=== PATIENT | female | born 1950 | race Caucasian/White ===

== ENCOUNTER 2019-04-21 00:49 | Outpatient (CLI) | payer MEDICARE, OTHER, MEDICAID, SELFPAY ==
--- NOTE | 2019-04-21 13:11 | DI.RAD_ITS ---
SYMPTOMS/DIAGNOSIS: COUGH, R05 PA AND LATERAL CHEST: No priors. The heart size and pulmonary vasculature are within normal limits. The lungs are clear and well expanded. No effusions or pneumothoraces are identified. There are bilateral breast implants in place. Degenerative changes are seen in the spine. IMPRESSION: No acute pulmonary process.
== END 2019-04-21 01:09 ==
PROVIDERS: Visit Provider Family Medicine
DX: R05 Cough (principal); Z98.82 Breast implant status
CPT/HCPCS: 71046

== ENCOUNTER 2019-05-14 12:47 | Outpatient (CLI) | payer MEDICARE, OTHER, SELFPAY ==
[2019-05-14 13:33] LABS: Hemoglobin A1C 6.6 % (4.5-6.2)
[2019-05-14 14:20] LABS: ALT 64 U/L (14-59); AST 36 U/L (15-37); Albumin 3.9 g/dL (3.4-5.0); Alkaline Phosphatase 81 U/L (46-116); Anion Gap 10.3 mmol/L (3-11); BUN 27 mg/dL (7-18); Bilirubin, Total 0.7 mg/dL (0.2-1.0); CO2 29.7 mmol/L (21.0-32.0); CREATININE 0.91 mg/dL (0.55-1.02); Calcium 9.7 mg/dL (8.5-10.1); Calculated LDL 88 mg/dL; Chloride 103 mmol/L (98-107); Cholesterol 167 mg/dL (50-200); Glucose 102 mg/dL (70-100); HDL Cholesterol 37 mg/dL (40-60); Potassium 3.8 mmol/L (3.5-5.1); Sodium 143 mmol/L (136-145); TSH 3.41 uIU/mL (0.36-3.74); Total Protein 7.3 g/dL (6.4-8.2); Triglyceride 213 mg/dL (30-150)
== END 2019-05-14 13:07 ==
PROVIDERS: PCP Family Medicine; Visit Provider Family Medicine
DX: I10 Essential (primary) hypertension (principal); E03.9 Hypothyroidism, unspecified; E11.9 Type 2 diabetes mellitus without complications
CPT/HCPCS: 36415; 80053; 80061; 83036; 84443

== ENCOUNTER 2020-06-26 02:18 | Outpatient (CLI) | payer MEDICARE, OTHER, SELFPAY ==
--- NOTE | 2020-06-26 | DI.CT_ITS ---
EXAM: CT NECK W CLINICAL HISTORY: CYST OF SALIVARY GLAND,K11.6. TECHNIQUE: Imaging Protocol: Axial computed tomography images with coronal and sagittal reformatted images were created and reviewed. CONTRAST MATERIAL: Intravenous: Omnipaque 350 Contrast volume:100 mL COMPARISON: No exams were available for comparison FINDINGS: Orbits and orbital soft tissues: Within normal limits. Visualized paranasal sinuses: Within normal limits. Nasopharynx: Within normal limits. Oropharynx: Within normal limits. Hypopharynx: Within normal limits. Larynx: Within normal limits. Retropharyngeal space: Within normal limits. Parotids/submandibular: The submandibular glands are unremarkable. Parotid glands appear decreased in size and contain punctate calcifications. There is a peripherally enhancing lesion measuring 1.8 x 0.8 cm lateral to the right digastric and mylohyoid muscles. It lies adjacent to the body of the r ight mandible. Centrally the lesion is fluid attenuation. Thyroid gland: Within normal limits. Lymphadenopathy: There is scattered lymph nodes seen along the level one to level three all measurin g less than 8 mm in short axis diameter which are physiologic in nature. Trachea: Within normal limits. Lung apices: Within normal limits. Bones: Within normal limits. Carotids/Jugular: Atherosclerosis seen in the carotid arteries. No significant stenosis. No occlus ion. Soft tissues: There is a 3.3 AP by 2.2 transverse by 5.1 cc cystic lesion in the left neck posterio r to the angle of the left mandible. The wall is predominantly thin with a slightly thicker portion posteriorly and inferiorly. IMPRESSION: 1. 1.8 x 0.8 cm peripherally enhancing lesion deep to the body of the right mandible in the submandib ular space. This may represent an infectious or inflammatory process such as an abscess. A mass can not be excluded. 2. 3.3 x 2.2 x 5.1 cm cystic lesion in the left neck posterior to the angle of the left mandible. Di fferential considerations include branchial cleft cyst, lymphangioma, adenopathy or neoplasm. RADIATION DOSE DELIVERED: 474.67mGy.cm Total DLP 474.67mGy.cm Total DLP DATA REPOSITORY: All CT scans at this facility are submitted to the National Radiology Data Registry (NRDR) Dose Index Registry (DIR) with the [employer] (ACR). RADIATION OPTIMIZATION: All CT scans at this facility use at least one of these dose optimization te chniques: automated exposure control; mA and/or kV adjustment per patient size (includes targeted exa ms where dose is matched to clinical indication); or iterative reconstruction.
[2020-06-26 12:45] LABS: Hemoglobin A1C 6.6 % (<5.7)
[2020-06-26 12:54] LABS: ALT 41 U/L (14-59); AST 25 U/L (15-37); Albumin 3.7 g/dL (3.4-5.0); Alkaline Phosphatase 88 U/L (46-116); Anion Gap 7.1 mmol/L (3-11); BUN 23 mg/dL (7-18); Bilirubin, Total 0.9 mg/dL (0.2-1.0); CO2 29.9 mmol/L (21.0-32.0); CREATININE 0.89 mg/dL (0.55-1.02); Calcium 9.5 mg/dL (8.5-10.1); Calculated LDL 73 mg/dL (<100); Chloride 102 mmol/L (98-107); Cholesterol 154 mg/dL (<200); Glucose 99 mg/dL (74-106); HDL Cholesterol 37 mg/dL (40-60); Potassium 3.8 mmol/L (3.5-5.1); Sodium 139 mmol/L (136-145); TSH 3.48 uIU/mL (0.36-3.74); Total Protein 7.6 g/dL (6.4-8.2); Triglyceride 224 mg/dL (<150)
[2020-06-26] MEDS: Normal Saline - Diluent 50 ML VIAL IV (13:13)
[2020-06-26] MEDS: Omnipaque 350 MG/ML 100 ML BTL IJ (13:14)
[2020-06-26] MEDS: Normal Saline Flush 10 ML SYR IVP (13:15)
== END 2020-06-26 02:38 ==
PROVIDERS: PCP Family Medicine; Visit Provider Family Medicine
DX: E11.9 Type 2 diabetes mellitus without complications (principal); I10 Essential (primary) hypertension; E78.2 Mixed hyperlipidemia; E03.9 Hypothyroidism, unspecified; K11.6 Mucocele of salivary gland
CPT/HCPCS: 70491; 80053; 80061; 83036; 84443; J3490

== ENCOUNTER 2020-07-25 00:53 | Outpatient (CLI) | payer MEDICARE, OTHER, SELFPAY ==
--- NOTE | 2020-07-25 14:33 | DI.MAMMO_ITS ---
EXAM: MG MAMMO SCREENING CLINICAL HISTORY: SCREENING, Z12.31. TECHNIQUE: Bilateral full field digital CC and MLO mammographic images were obtained with 3D tomosyn thesis and utilizing computer aided detection (CAD). Both conventional and implant displacement views were performed. COMPARISON: Prior mammograms dating back to 2014, the most recent being June 2019. FINDINGS: There are bilateral radiopaque prepectoral dense silicon implants. Capsular calcification of both im plants is noted. Number subtle nodular densities in both breasts, more evident than previous. Normal-appearing microc alcification groups. There is no new architectural distortion nor skin thickening-retraction. IMPRESSION: Subtle bilateral nodules. Recommend breast ultrasound. BI-RADS Category 0 - Assessment Incomplete: Need additional imaging evaluation Breast Density - Category B - Scattered areas of fibroglandular density Breast density Category C or D implies that the patient has dense breast tissue. Dense breast tissue can make it harder to find cancer on a mammogram. Dense breast tissue is also associated with an incr eased risk of breast cancer. This information about the result of the mammogram report was provided to the patient to raise their awareness. Use this report when you speak with the patient about their risks for breast cancer, which includes their family history. At that time, you may recommend additional screening tests (Ultrasoun d or MRI) as these tests may add significant information. A negative radiographic report should not delay biopsy if a dominant or clinically suspicious mass is present. Up to ten percent of cancers are not identified on mammography. A negative report may reinforce clinical impression. Adenosis and dense breasts may obscure an underlying neoplasm. False positive reports average 6 to 10%. Patient will receive a letter notifying them of these results.
== END 2020-07-25 01:13 ==
PROVIDERS: PCP Family Medicine; Visit Provider Family Medicine
DX: Z12.31 Encounter for screening mammogram for malignant neoplasm of breast (principal); Z98.82 Breast implant status; R92.8 Other abnormal and inconclusive findings on diagnostic imaging of breast
CPT/HCPCS: 77063; 77067

== ENCOUNTER 2020-08-03 03:32 | Outpatient (CLI) | payer MEDICARE, OTHER, SELFPAY ==
--- NOTE | 2020-08-03 | DI.US_ITS ---
EXAM: US BREAST LT LIMITED CLINICAL HISTORY: F/U MAMMO, BILAT NODULES TECHNIQUE: Ultrasound right breast performed using standard protocol. COMPARISON: US US BREAST RT LIMITED from 08/03/2020 FINDINGS: At the 3 o'clock position there is a wider than taller well-defined benign-appearing nodule measuring approximately 5 by 4.5 millimeters, probably a benign lymph node. No other focal findings evident.. IMPRESSION: Probable 5 x 4.5 millimeter lymph node 3 o'clock position. Recommend repeat ultrasound in 6 months t o ensure stability. BI-RADS Category 3 - 6 month - Probably Benign Finding: Recommend follow-up mammography in 6 months DATA REPOSITORY:
--- NOTE | 2020-08-03 | DI.US_ITS ---
EXAM: US BREAST RT LIMITED CLINICAL HISTORY: F/U MAMMO, BILAT NODULES TECHNIQUE: Ultrasound right breast performed using standard protocol. COMPARISON: Recent and prior mammograms were reviewed FINDINGS: At the 9 o'clock position there is an 8 x 6 millimeter benign-appearing lymph node. No other focal f indings evident on these images. IMPRESSION: Benign-appearing lymph node 9 o'clock position. BI-RADS Category 2 - Benign Findings DATA REPOSITORY:
== END 2020-08-03 03:52 ==
PROVIDERS: PCP Family Medicine; Visit Provider Family Medicine
DX: R92.8 Other abnormal and inconclusive findings on diagnostic imaging of breast (principal); N63.25 Unspecified lump in the left breast, overlapping quadrants; N63.15 Unspecified lump in the right breast, overlapping quadrants
CPT/HCPCS: 76642

== ENCOUNTER 2021-02-07 01:05 | Outpatient (CLI) | payer MEDICARE, OTHER, SELFPAY ==
--- NOTE | 2021-02-07 | DI.US_ITS ---
Exam(s) US BREAST RT LIMITED US BREAST LT LIMITED EXAM: US BREAST BILATERAL LIMITED CLINICAL HISTORY: F/U TO PREV, R92.8, ENLARGED LYMPH NODES,R59.9.6 MONTH FOLLOW UP. TECHNIQUE: Limited ultrasound of BOTH BREASTS was performed. COMPARISON: Prior mammograms were reviewed. This patient has bilateral silicone implants which were placed approximately 40 years ago. She claims that she is aware that they have been ruptured for alexys e time. FINDINGS: LEFT BREAST: At the 3 o'clock position there is again noted the previously described small benign-appearing nodule which has appearance of benign lymph node, measuring approximately 6 x 5 millimeters, unchanged. RIGHT BREAST: At the 9 o'clock position there is again noted a benign-appearing lymph node measuring 8 x 6 millimet ers, also exhibiting minimal if any significant change. At 7 o'clock position there is a finding consistent with the inferior aspect of her ruptured implant which measures approximately 1.5 x 1.5 cm. Adjacent to this are 2 small 3 millimeter cystic-appearin g structures which are possibly silicone droplets. Most importantly, there are no new solid lesions evident in either breast. IMPRESSION: Benign bilateral ultrasound findings as described above. Appropriate follow-up is to keep this patient yearly mammogram schedule implying that her next breast imaging would be in July 2021. At that time she should undergo bilateral mammography and bilate ral breast ultrasound.. BI-RADS Category 2 - Benign Findings Breast Density - Category B - Scattered areas of fibroglandular density Breast density Category C or D implies that the patient has dense breast tissue. Dense breast tissue can make it harder to find cancer on a mammogram. Dense breast tissue is also associated with an incr eased risk of breast cancer. This information about the result of the mammogram report was provided to the patient to raise their awareness. Use this report when you speak with the patient about their risks for breast cancer, which includes their family history. At that time, you may recommend additional screening tests (Ultrasoun d or MRI) as these tests may add significant information. A negative radiographic report should not delay biopsy if a dominant or clinically suspicious mass is present. Up to ten percent of cancers are not identified on mammography. A negative report may reinforce clinical impression. Adenosis and dense breasts may obscure an underlying neoplasm. False positive reports average 6 to 10%. Patient will receive a letter notifying them of these results.
== END 2021-02-07 01:25 ==
PROVIDERS: PCP Family Medicine; Visit Provider Surgery
DX: R59.0 Localized enlarged lymph nodes (principal); R92.8 Other abnormal and inconclusive findings on diagnostic imaging of breast
CPT/HCPCS: 76642

== ENCOUNTER 2021-03-07 03:31 | Outpatient (CLI) | payer MEDICARE, OTHER, SELFPAY ==
[2021-03-07 11:44] LABS: Hemoglobin A1C 7.3 % (<5.7)
[2021-03-07 12:33] LABS: ALT 113 U/L (14-59); AST 79 U/L (15-37); Albumin 3.8 g/dL (3.4-5.0); Alkaline Phosphatase 100 U/L (46-116); Anion Gap 10.8 mmol/L (3-11); BUN 21 mg/dL (7-18); Bilirubin, Total 0.8 mg/dL (0.2-1.0); CO2 29.2 mmol/L (21.0-32.0); Calcium 9.9 mg/dL (8.5-10.1); Chloride 104 mmol/L (98-107); Estimated GFR 54.97 (mL/min/1.73m2); Glucose 135 mg/dL (74-106); Sodium 144 mmol/L (136-145); TSH 3.71 uIU/mL (0.36-3.74); Total Protein 7.5 g/dL (6.4-8.2)
[2021-03-07 20:40] LABS: Calculated LDL 107 mg/dL (<100); Cholesterol 195 mg/dL (<200); HDL Cholesterol 37 mg/dL (40-60); Triglyceride 257 mg/dL (<150)
== END 2021-03-07 03:32 | disposition home or self-care (01) ==
LOC: LBO 03:31
PROVIDERS: PCP Family Medicine; Visit Provider Family Medicine
DX: I10 Essential (primary) hypertension (principal); E11.9 Type 2 diabetes mellitus without complications; E03.9 Hypothyroidism, unspecified; E78.5 Hyperlipidemia, unspecified
CPT/HCPCS: 36415; 80053; 80061; 83036; 84443

== ENCOUNTER 2021-07-31 00:28 | Outpatient (CLI) | payer MEDICARE, OTHER, SELFPAY ==
--- NOTE | 2021-07-31 10:20 | DI.MAMMO_ITS ---
Exam(s) MAMMO SCREENING EXAM: MAMMO SCREENING CLINICAL HISTORY: BREAST CANCER SCREENING Z12.31 TECHNIQUE: Bilateral full field digital CC and MLO mammographic images were obtained with 3D tomosyn thesis and utilizing computer aided detection (CAD). COMPARISON: Available for comparison. FINDINGS: Masses/Architectural Distortion: There are stable bilateral nodules present. The patient has bilater al breast implants. Capsular calcification is seen in both implants. Since the prior examination, t here appears to be rupture of the right breast implant. Microcalcifications: No suspicious pleomorphic-type are seen. Skin Thickening/Nipple Retraction: None. IMPRESSION: 1. No significant interval change with no specific features of malignancy noted. 2. Right breast implant rupture. 3. Unless there is more urgent need, screening mammography is recommended, as per [employer] guidelines. BI-RADS Category 2 - Benign Findings Breast Density - Category B - Scattered areas of fibroglandular density Breast density category C or D implies that the patient has dense breast tissue. Dense breast tissue is very common and is not abnormal but dense breast tissue can make it harder to find cancer on a ma mmogram. Also, dense breast tissue may increase their breast cancer risk. This information about the result of the mammogram report was provided to the patient to raise their awareness. Use this report when you speak with the patient about their risks for breast cancer, which includes their family hist ory. At that time, you may recommend for more screening tests (Ultrasound or MRI) as they might be us eful based on their risk. A negative radiographic report should not delay biopsy if a dominant or clinically suspicious mass is present. Up to ten percent of cancers are not identified on mammography. A negative report may reinforce clinical impression. Adenosis and dense breasts may obscure an underlying neoplasm. False positive reports average 6 to 10%. Patient will receive a letter notifying them of these results.
== END 2021-07-31 00:48 ==
PROVIDERS: PCP Family Medicine; Visit Provider Surgery
DX: Z12.31 Encounter for screening mammogram for malignant neoplasm of breast (principal); Z98.82 Breast implant status; T85.49XA Other mechanical complication of breast prosthesis and implant, initial encounter
CPT/HCPCS: 77063; 77067

== ENCOUNTER 2021-07-31 02:48 | Outpatient (CLI) | payer MEDICARE, OTHER, SELFPAY ==
[2021-07-31 12:07] LABS: ALT 94 U/L (14-59); AST 52 U/L (15-37); Albumin 4.1 g/dL (3.4-5.0); Alkaline Phosphatase 98 U/L (46-116); Anion Gap 9.9 mmol/L (3-11); BUN 30 mg/dL (7-18); Bilirubin, Total 1.3 mg/dL (0.2-1.0); CO2 32.1 mmol/L (21.0-32.0); CREATININE 1.1 mg/dL (0.55-1.02); Calcium 10.1 mg/dL (8.5-10.1); Calculated LDL 87 mg/dL (<100); Chloride 101 mmol/L (98-107); Cholesterol 165 mg/dL (<200); Estimated GFR 49.25 (mL/min/1.73m2); Glucose 140 mg/dL (74-106); HDL Cholesterol 34 mg/dL (40-60); Potassium 3.7 mmol/L (3.5-5.1); Sodium 143 mmol/L (136-145); TSH 3.41 uIU/mL (0.36-3.74); Total Protein 7.8 g/dL (6.4-8.2); Triglyceride 221 mg/dL (<150)
== END 2021-07-31 02:49 | disposition home or self-care (01) ==
LOC: LBO 02:48
PROVIDERS: PCP Family Medicine; Visit Provider Family Medicine
DX: E11.9 Type 2 diabetes mellitus without complications (principal); I10 Essential (primary) hypertension; E03.9 Hypothyroidism, unspecified; E78.2 Mixed hyperlipidemia
CPT/HCPCS: 36415; 80053; 80061; 83036; 84443

== ENCOUNTER 2021-09-12 02:03 | Outpatient (CLI) | payer MEDICARE, OTHER, SELFPAY ==
[2021-09-12 10:57] LABS: Hemoglobin A1C 7.3 % (<5.7)
[2021-09-12 12:39] LABS: ALT 101 U/L (14-59); AST 73 U/L (15-37); Albumin 3.9 g/dL (3.4-5.0); Alkaline Phosphatase 98 U/L (46-116); Anion Gap 9.9 mmol/L (3-11); BUN 28 mg/dL (7-18); Bilirubin, Total 0.9 mg/dL (0.2-1.0); CO2 28.1 mmol/L (21.0-32.0); Calcium 9.7 mg/dL (8.5-10.1); Chloride 103 mmol/L (98-107); Estimated GFR 54.97 (mL/min/1.73m2); Glucose 161 mg/dL (74-106); Potassium 3.8 mmol/L (3.5-5.1); Sodium 141 mmol/L (136-145); Total Protein 7.6 g/dL (6.4-8.2)
== END 2021-09-12 02:04 | disposition home or self-care (01) ==
LOC: LBO 02:03
PROVIDERS: PCP Family Medicine; Visit Provider Family Medicine
DX: E11.9 Type 2 diabetes mellitus without complications (principal); E78.2 Mixed hyperlipidemia
CPT/HCPCS: 36415; 80053; 83036

== ENCOUNTER 2022-03-06 02:37 | Outpatient (CLI) | payer MEDICARE, OTHER, SELFPAY ==
[2022-03-06 11:49] LABS: Hemoglobin A1C 7.1 % (<5.7)
[2022-03-06 12:41] LABS: ALT 53 U/L (14-59); AST 33 U/L (15-37); Albumin 3.9 g/dL (3.4-5.0); Alkaline Phosphatase 92 U/L (46-116); Anion Gap 12.3 mmol/L (3-11); BUN 25 mg/dL (7-18); Bilirubin, Total 1.2 mg/dL (0.2-1.0); CO2 29.7 mmol/L (21.0-32.0); Calcium 10.5 mg/dL (8.5-10.1); Calculated LDL 92 mg/dL (<100); Chloride 104 mmol/L (98-107); Cholesterol 164 mg/dL (<200); Estimated GFR 54.81 (mL/min/1.73m2); Glucose 148 mg/dL (74-106); HDL Cholesterol 39 mg/dL (40-60); Potassium 3.5 mmol/L (3.5-5.1); Sodium 146 mmol/L (136-145); TSH 3.36 uIU/mL (0.36-3.74); Total Protein 7.7 g/dL (6.4-8.2); Triglyceride 169 mg/dL (<150)
== END 2022-03-06 02:38 | disposition home or self-care (01) ==
LOC: LBO 02:37
PROVIDERS: PCP Family Medicine; Visit Provider Family Medicine
DX: I10 Essential (primary) hypertension (principal); E78.2 Mixed hyperlipidemia; E03.9 Hypothyroidism, unspecified; E11.9 Type 2 diabetes mellitus without complications
CPT/HCPCS: 36415; 80053; 80061; 83036; 84443

== ENCOUNTER → 2022-08-01 01:05 | Outpatient (CLI) | payer MEDICARE, SELFPAY ==
--- NOTE | 2022-08-01 | DI.MAMMO_ITS ---
Exam(s) MG MAMMO SCREENING 60 MIN DUR EXAM: MG MAMMO SCREENING 60 MIN DUR CLINICAL HISTORY: SCREENING, Z12.31 TECHNIQUE: Bilateral full field digital CC and MLO mammographic images were obtained with 3D tomosyn thesis and utilizing computer aided detection (CAD). COMPARISON: Available for comparison. FINDINGS: Masses/Architectural Distortion: There are stable bilateral breast nodules, right greater than left. No suspicious nodules or areas of architectural distortion are seen. The bilateral breast implants are unchanged in appearance. Microcalcifications: No suspicious pleomorphic-type are seen. Skin Thickening/Nipple Retraction: None. IMPRESSION: 1. No significant interval change with no specific features of malignancy noted. 2. Unless there is more urgent need, screening mammography is recommended, as per [employer] guidelines. BI-RADS Category 2 - Benign Findings Breast Density - Category B - Scattered areas of fibroglandular density Breast density category C or D implies that the patient has dense breast tissue. Dense breast tissue is very common and is not abnormal but dense breast tissue can make it harder to find cancer on a ma mmogram. Also, dense breast tissue may increase their breast cancer risk. This information about the result of the mammogram report was provided to the patient to raise their awareness. Use this report when you speak with the patient about their risks for breast cancer, which includes their family hist ory. At that time, you may recommend for more screening tests (Ultrasound or MRI) as they might be us eful based on their risk. A negative radiographic report should not delay biopsy if a dominant or clinically suspicious mass is present. Up to ten percent of cancers are not identified on mammography. A negative report may reinforce clinical impression. Adenosis and dense breasts may obscure an underlying neoplasm. False positive reports average 6 to 10%. Patient will receive a letter notifying them of these results.
== END ==
PROVIDERS: PCP Family Medicine; Visit Provider Surgery
DX: Z12.31 Encounter for screening mammogram for malignant neoplasm of breast (principal)
CPT/HCPCS: 77063; 77067

== ENCOUNTER 2022-09-02 03:21 | Outpatient (CLI) | payer MEDICARE, SELFPAY ==
[2022-09-02 12:08] LABS: Hemoglobin A1C 7.3 % (<5.7)
[2022-09-02 12:19] LABS: ALT 44 U/L (14-59); AST 37 U/L (15-37); Albumin 3.7 g/dL (3.4-5.0); Alkaline Phosphatase 94 U/L (46-116); BUN 27 mg/dL (7-18); Estimated GFR 60.61 (mL/min/1.73m2); Glucose 135 mg/dL (74-106); TSH 4.23 uIU/mL (0.36-3.74); Total Protein 7.5 g/dL (6.4-8.2)
[2022-09-02 12:29] LABS: Anion Gap 6.3 mmol/L (3-11); Bilirubin, Total 0.8 mg/dL (0.2-1.0); CO2 31.7 mmol/L (21.0-32.0); Chloride 102 mmol/L (98-107); Potassium 3.7 mmol/L (3.5-5.1); Sodium 140 mmol/L (136-145)
== END 2022-09-02 03:22 | disposition home or self-care (01) ==
LOC: LBO 03:21
PROVIDERS: PCP Family Medicine; Visit Provider Family Medicine
DX: E11.9 Type 2 diabetes mellitus without complications (principal); E03.9 Hypothyroidism, unspecified; I10 Essential (primary) hypertension
CPT/HCPCS: 36415; 80053; 83036; 84443

== ENCOUNTER 2022-11-27 03:08 | Outpatient (CLI) | payer MEDICARE, SELFPAY ==
[2022-11-27 13:00] LABS: Calculated LDL 98 mg/dL (<100); Cholesterol 183 mg/dL (<200); HDL Cholesterol 40 mg/dL (40-60); TSH 3.65 uIU/mL (0.36-3.74); Triglyceride 226 mg/dL (<150)
== END 2022-11-27 03:09 | disposition home or self-care (01) ==
LOC: LBO 03:08
PROVIDERS: PCP Family Medicine; Visit Provider Family Medicine
DX: E78.2 Mixed hyperlipidemia (principal); E11.9 Type 2 diabetes mellitus without complications; E03.9 Hypothyroidism, unspecified
CPT/HCPCS: 36415; 80061; 84443

== ENCOUNTER 2022-12-26 01:02 | Outpatient (CLI) | payer MEDICARE, SELFPAY ==
--- NOTE | 2022-12-26 10:38 | DI.US_ITS ---
APPROVED REPORT EXAM: Comprehensive 2D, Doppler, and color-flow Echocardiogram Patient Location: Out-Patient Plant Attendant: Dick Kim RDMS, RVT Indications: dyspnea Conclusion Normal left ventricular wall thickness and chamber size. Ejection fraction is 55%. There are no seg mental wall motion abnormalities Normal right ventricular size and systolic function Both atria are normal in size Trileaflet aortic valve with trace regurgitation Normal mitral valve with trace regurgitation Normal tricuspid valve with mild regurgitation. Estimated right ventricular systolic pressure is 23 mmHg Wall motion Left Ventricle The left ventricle is normal size. Left ventricular systolic function is normal There is normal left ventricular wall thickness. There are no segmental wall motion abnormalities There is no ventricular septal defect visualized. LVEF is 55%. Right Ventricle The right ventricle is normal size. The right ventricular systolic function is normal. The RVSP is 22 .9 mmHg. Atria The left atrium size is normal. The right atrium size is normal. The interatrial septum is intact wit h no evidence for an atrial septal defect. Aortic Valve The aortic valve is normal in structure. Aortic valve is probably trileaflet. There is no aortic valv ular stenosis. Trace aortic regurgitation. Mitral Valve The mitral valve is normal in structure. No evidence of mitral valve stenosis. Trace mitral regurgita tion. Tricuspid Valve The tricuspid valve is normal in structure. There is no tricuspid valve stenosis. Mild tricuspid regu rgitation. Pulmonic Valve The pulmonary valve is normal in structure. There is no pulmonic valvular stenosis. Trace pulmonic re gurgitation. Great Vessels The aortic root is normal in size. The ascending aorta is normal in size. Aortic arch is normal in ca liber. IVC is normal in size and collapses >50% with inspiration. Pericardium There is no pericardial effusion. 2D Dimensions IVSD d PLAX 0.75 cm F: 0.6-1.0 LV Vol A2C d MOD 39.9 mL LVPW d PLAX 0.75 cm F: 0.6 - 1.0 LV Vol A4C d MOD 84.2 mL LVID d PLAX 4.01 cm F: 3.8 - 5.2 LA vol/ BSA A4C s A-L 24.7 mL/m2 LVDs 2.90 cm F: 2.2 - 3.5 LA Area A4C s MOD 16.41 cm2 Ao Root d 2.36 cm F: 2.7 - 3.3 LV EF A4C MOD 50.8 % Ao Asc Diam d 3.05 cm F: 2.3 - 3.1 LV EF A2C MOD 51.4 % LV EF Teichholz 52.6 % LV EF Biplane MOD 50.8 % LVEF (Shay's) 50.76 % F: 54 - 74 SV 29.98 mL LV Volume 45.68 mL F: 46 - 106 SV Index 16.40 mL/m2 LV Volume Index 24.96 mL/m2 F: 29 - 61 LV Vol Biplane MOD 59.0 mL FS 26.60 % M-Mode TAPSE 1.83 cm (M/F) >1.7 LV Diastology MV E' medial 0.088 (>0.07 m/s) E/A Ratio 0.9 LV E/e MED 9.25 (<14) MV E Vmax 0.82 (0.4-1.3 m/s) MV E' lateral 0.095 (>0.1 m/s) MV A Vmax 0.95 (0.4-1.3 m/s) LV E/e LAT 8.55 (<14) MV E/A Ratio 0.84 MV E/E' medial 9.28 MV E/E' lateral 8.56 Aortic Valve LVOT Area 3.12 cm2 AoV Area Vmax 2.36 cm2 LVOT Vmax 0.88 m/s AoV Area/ BSA (Vmax) 1.29 cm2/m2 LVOT Mean Azael. 0.52 m/s GISELL Mean Azael. 2.00 cm2 LVOT Peak Grad 3.1 mmHg GISELL Mean Azael. Index 1.09 cm2/m2 LVOT Mean Grad 1.3 mmHg AR DT 1908 msec LVOT VTI 0.194 m AR PHT 553 msec LVOT Diam s 1.95 cm AoV Vmax 1.17 m/s Velocity Ratio 0.75 AoV Mean Azael. 0.81 m/s AoV Peak Grad 5.5 mmHg LVOT SV 60.51 mL AoV Mean Grad 2.9 mmHg AoV VTI 0.240 m AoV Area VTI 2.52 cm2 AoV Area/ BSA (VTI) 1.38 cm/m2 Mitral Valve MV DT 236 (160-240 msec) MV PHT 68 msec MV Area PHT 3.21 cm2 MV VTI 0.374 m MV Area VTI 1.62 (4.0-6.0 cm2) Pulmonary Valve PV Vmax 0.73 (0.5-1.5 m/s) RVOT Peak Gr. 0.42 mmHg PV Peak Grad 2.1 mmHg RVOT Mean Gr. 0.25 mmHg PV Mean Grad 1.4 mmHg RVOT VTI 0.083 m PV VTI 0.150 m RVOT Vmax 0.32 m/s Tricuspid Valve TR Peak Grad 19.9 mmHg TR Vmax 2.23 m/s RA Pressure 3.00 mmHg RVSP (TR) 22.9 mmHg
== END 2022-12-26 01:22 ==
LOC: DI 01:03
PROVIDERS: PCP Family Medicine; Visit Provider Internal Medicine Cardiovascular Disease
DX: R06.00 Dyspnea, unspecified (principal)
CPT/HCPCS: 93306

== ENCOUNTER 2023-01-29 04:00 | Outpatient (CLI) | payer MEDICARE, SELFPAY ==
[2023-01-29 14:22] LABS: Calculated LDL 86 mg/dL (<100); Cholesterol 167 mg/dL (<200); HDL Cholesterol 36 mg/dL (40-60); TSH 2.86 uIU/mL (0.36-3.74); Triglyceride 226 mg/dL (<150)
[2023-01-29 14:43] LABS: Hemoglobin A1C 7.1 % (<5.7)
== END 2023-01-29 04:01 | disposition home or self-care (01) ==
LOC: LBO 04:04
PROVIDERS: PCP Family Medicine; Visit Provider Internal Medicine Cardiovascular Disease
DX: E03.9 Hypothyroidism, unspecified (principal); E11.9 Type 2 diabetes mellitus without complications
CPT/HCPCS: 36415; 80061; 83036; 84443

== ENCOUNTER 2023-09-03 02:55 | Outpatient (CLI) | payer MEDICARE, SELFPAY ==
[2023-09-03 11:25] LABS: ALT 28 U/L (14-59); AST 17 U/L (15-37); Albumin 3.5 g/dL (3.4-5.0); Alkaline Phosphatase 83 U/L (46-116); BUN 30 mg/dL (7-18); CREATININE 1.1 mg/dL (0.55-1.02); Calcium 10.3 mg/dL (8.5-10.1); Chloride 102 mmol/L (98-107); Estimated GFR 53.72 (mL/min/1.73m2); Glucose 158 mg/dL (74-106); Potassium 3.9 mmol/L (3.5-5.1); Sodium 141 mmol/L (136-145); Total Protein 7.7 g/dL (6.4-8.2)
== END 2023-09-03 02:56 | disposition home or self-care (01) ==
LOC: LBO 02:55
PROVIDERS: PCP Family Medicine; Visit Provider Family Medicine
DX: E11.9 Type 2 diabetes mellitus without complications (principal); E03.9 Hypothyroidism, unspecified; I10 Essential (primary) hypertension
CPT/HCPCS: 36415; 80053; 83036

== ENCOUNTER 2023-09-09 13:10 | Emergency (ER) | payer MEDICARE, SELFPAY ==
[2023-09-09 13:12] VITALS: BP 170/87; PULSE 72; RESP 18; TEMP 36.6; O2SAT 97
[2023-09-09 13:18] VITALS: RESP 18
[2023-09-09 13:20] VITALS: BP 170/87; PULSE 72; RESP 18; TEMP 36.6; O2SAT 97
--- NOTE | 2023-09-09 13:30 | DI.CT_ITS ---
Exam(s) CT HEAD WO EXAM: CT HEAD WO CLINICAL HISTORY: dizziness. TECHNIQUE: Imaging Protocol: Axial computed tomography images with coronal and sagittal reformatted images were created and reviewed COMPARISON: No exams were available for comparison FINDINGS: There are no skull fractures. There is no fluid in the visualized paranasal sinuses. There is no evidence of intracranial hemorrhage, mass effect, or shift of midline structures. There are no extra-axial fluid collections. The ventricles are not enlarged or shifted and there is no blo od within the ventricular system nor within the basal cisterns. There is significant bilateral periventricular hypodensity consistent with chronic small vessel disea se, relatively symmetrical with the left temporal lobe superior temporal gyrus. This area exhibits a symmetric abnormal hypodensity IMPRESSION: In addition to bilateral periventricular hypodensity consistent with probable small vessel ischemic c hanges, there is also asymmetric abnormal hypodensity in these posterior aspect of the superior left temporal gyrus, probably element of infarction at this level given the location there is always a pos sibility of inflammatory such as encephalitis. Recommend follow-up contrast infused MRI Called by myself to ER physician. RADIATION DOSE DELIVERED: 732.07mGy.cm Total DLP DATA REPOSITORY: All CT scans at this facility are submitted to the National Radiology Data Registry (NRDR) Dose Index Registry (DIR) with the [employer] (ACR). RADIATION OPTIMIZATION: All CT scans at this facility use at least one of these dose optimization te chniques: automated exposure control; mA and/or kV adjustment per patient size (includes targeted exa ms where dose is matched to clinical indication); or iterative reconstruction.
--- NOTE | 2023-09-09 13:41 | ED.GENADUL_ITS ---
HPI General Date/Time Provider Initiated Documentation: 09/09/23 13:29 . HPI Narrative: Patient patient presents emergency department stating that 4 hours ago she woke up and was having dizziness like the room was spinning and started having nausea and had 1 episode of vomiting. States that the dizziness has improved but still if she moves her head she got dizzy so she called her and came to the emergency department. 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 States that her first symptoms improved completely. States that the time she did not go to the hospital on time and that showed that she had a stroke through MRI but at that time she waited 4 days to show up so today she decided to follow-up here. Here she denies any upper or lower extremity weakness numbness no inability to talk no headache chills refers dizziness. Related Data Home Medications Medication Instructions Recorded Confirmed meclizine 12.5 mg tablet 12.5 mg PO TID PRN dizziness #20 09/09/23 tabs meclizine 12.5 mg tablet 12.5 mg PO TID PRN dizziness #20 09/09/23 tabs ondansetron 4 mg disintegrating 4 mg PO BID-TID PRN nausea and 09/09/23 tablet vomiting #20 tabs ondansetron 4 mg disintegrating 4 mg PO BID-TID PRN nausea and 09/09/23 tablet vomiting #20 tabs Previous Rx's Medication Instructions Recorded meclizine 12.5 mg tablet 12.5 mg PO TID PRN dizziness #20 09/09/23 tabs meclizine 12.5 mg tablet 12.5 mg PO TID PRN dizziness #20 09/09/23 tabs ondansetron 4 mg disintegrating 4 mg PO BID-TID PRN nausea and 09/09/23 tablet vomiting #20 tabs ondansetron 4 mg disintegrating 4 mg PO BID-TID PRN nausea and 09/09/23 tablet vomiting #20 tabs General Stated Complaint: GenMedical WILDA: 3 Review of Systems Narrative: Review of Systems: Constitutional: No fevers, chills, sweats Eye: No recent visual problems ENT: No ear pain, nasal congestion, sore throat Respiratory: No shortness of breath, cough Cardiovascular: No Chest pain, palpitations, syncope Gastrointestinal: No nausea, vomiting, diarrhea Genitourinary: No hematuria Nima/Lymph: Negative for bruising tendency, swollen lymph glands Endocrine: Negative for excessive thirst, excessive hunger Musculoskeletal: No back pain, neck pain, joint pain, muscle pain, decreased range of motion Integumentary: No rash, pruritus, abrasions Neurologic: Alert & oriented X 4 Psychiatric: No anxiety, depression PFSH All Active Problems (Updated 09/09/23 @ 16:57 by Juan Manuel Fontenot MD) Benign paroxysmal positional vertigo (Acute) Social History Smoking/Tobacco Use Status: Never Smoking risk assessment performed?: Yes Alcohol Intake: current Alcohol Intake frequency: holidays/special occasions only Alcohol type: wine Substance use type: does not use Housing: house Do you feel safe at home: Yes Do you feel safe in your relationship?: Yes Additional Social history: unable to assess alone Exam Narrative Exam Narrative: Exam; vitals signs as reported above normal Constitutional; In no acute distress, afebrile General: cooperative, healthy appearing, comfortable and no acute distress HEENT: Head: normal to inspection, no palpable skull fracture and normocephalic atraumatic Eyes: : appearance normal, both eyes and all related structures EOM intact bilaterally Pupils: PERRL : conjunctiva normal Direct ophthalmoscopy: normal light reflex, normal conjunctiva, normal visual acuity Ears: Normal TM, normal external canal Nose: normal no rhinorreha Neck no JVD, supple non tender Neck: normal visual inspection, full ROM and no lymphadenopathy Chest: normal inspection of the chest Respiratory : normal respiratory effort and able to speak in complete sentences no wheezing no rales Cardio Rate: regular rate, rhythm: regular rhythm normal heart sounds S1 and S2 no murmurs, gallops, or rubs GI : normal to inspection, normal bowel sounds, soft, non tender, non distended, no organomegaly Back/Spine/ no CVA tenderness Thoracic/Lumbar Spine: no tenderness or deformities Skin no rashes or lesions Neuro: patient alert oriented x 4 and no meningeal signs, Cranial Nerves: CN's II-XI intact bilaterally, Cognition: normal cognition, Speech: speech normal, Gait: normal gait, Depp tendon reflexes normal 2+ muscle strength 5/5 bilaterally Extremities, no edema, full range of motion, normal strength Course Vital Signs Vital signs: Vital Signs Temperature 36.6 C 09/09/23 13:12 Pulse 72 09/09/23 13:12 Respiratory Rate 18 09/09/23 13:12 Blood Pressure 170/87 H 09/09/23 13:12 Pulse Oximetry 97 09/09/23 13:12 Temperature 36.6 C 09/09/23 13:20 Temperature Source Temporal Artery Scan 09/09/23 13:20 Pulse 72 09/09/23 13:20 Respiratory Rate 18 09/09/23 13:20 Respiratory Effort Short of Breath 09/09/23 13:19 Respiratory Depth Normal 09/09/23 13:18 Respiratory Pattern Normal 09/09/23 13:18 Blood Pressure 170/87 H 09/09/23 13:20 Blood Pressure Position Sitting 09/09/23 13:20 Pulse Oximetry 97 09/09/23 13:20 Oxygen Delivery Method Room Air 09/09/23 13:20 Oxygen Flow Rate 0 09/09/23 13:20 Procedures Other Description: NIH score Patient has an NIH score of 0 Medical Decision Making MDM: Summary: Patient presented to the emergency department complaining of dizziness which were further vertiginous feeling well everything was spinning associated with nausea. Denies any syncope does not denies any upper or lower extremity weakness and her NIH score was 0. She was given meclizine and Zofran with complete resolution of her symptoms. The radiologist read initially a CAT scan of the head of a questionable area of an infarct reason she had an MRI which was read as negative. At this time the patient most likely has benign positional vertigo she will be discharged home on meclizine and will follow-up with her [facility] physician. Data Review Analysis All the data on this patient was reviewed by me including laboratory and imaging studies as well as bedside studies performed by me Independent review of Studies Imaging CT head was read by the radiologist a questionable area of infarct or ischemia that was completely contradicted by subsequent MRI which showed no abnormality at this time Lab: Labs are unremarkable Risk Stratification: Patient with benign positional vertigo who received meclizine and will be discharged home she states that she feels much better Differential Diagnosis: 1. Benign positional vertigo 2. Vertebrobasilar insufficiency 3. CVA 4. Intracranial hemorrhage 5. M?ni?re's disease I Consultants: have spoken with the radiologist confirmed that the MRI is negative Shared disposition: Patient understands her disposition and feels better and will take the medication as needed Impression: Medical Records Medical records reviewed: Yes I reviewed the patient's medical records. Quality:SDOH Health Related Social Needs: No Data to Display Discharge Plan Disposition Patient Disposition: Home Condition: Good Discharge Details Clinical Impression: Benign paroxysmal positional vertigo Primary Care Provider: Antonio Veliz ED Provider: Juan Manuel Fontenot Meds and New Rx's Prescriptions: New ondansetron 4 mg tablet,disintegrating 4 mg PO BID-TID PRN (Reason: nausea and vomiting) Qty: 20 0RF meclizine 12.5 mg tablet 12.5 mg PO TID PRN (Reason: dizziness) Qty: 20 0RF meclizine 12.5 mg tablet 12.5 mg PO TID PRN (Reason: dizziness) Qty: 20 0RF ondansetron 4 mg tablet,disintegrating 4 mg PO BID-TID PRN (Reason: nausea and vomiting) Qty: 20 0RF Discharge Data Discharge Date/Time-TO BE ENTERED AT DEPARTURE: 09/09/23 17:23 Discharge Physician: Juan Manuel Fontenot
[2023-09-09] MEDS: Ondansetron 4 MG/2 ML VIAL IVP (13:55)
[2023-09-09] MEDS: Meclizine 25 MG TAB PO (13:55)
[2023-09-09] MEDS: Normal Saline 1,000 ML 1000 ML IV (13:55)
[2023-09-09 13:58] LABS: Abs Immature Grans 0.03 10^3/uL (0.0-0.06); Absolute Eosinophil Count 0.27 10^3/uL (0.0-0.7); Absolute Lymphocyte Count 1.88 10^3/uL (1.2-3.4); Absolute Monocyte Count 0.45 10^3/uL (0.1-0.8); Absolute Neutrophil Count 6.78 10^3/uL (1.2-6.7); Basophils % 1.1; Eosinophils % 2.8; HGB 13.7 g/dL (11.2-15.7); Immature Grans % 0.3; Lymphocytes % 19.8; MCH 29.7 pg (27.0-33.0); MCHC 32.6 % (32.0-36.0); MCV 91 fL (80-95); MPV 9.9 fL (8.0-11.0); Monocytes % 4.7; Neutrophils % 71.3; Platelet Count 265 10^3/uL (130-400); RBC 4.62 10^6/uL (3.93-5.22); RDW 13.6 % (11.7-14.6); RDW-SD 45.7 fL; WBC 9.51 10^3/uL (4.4-10.8)
[2023-09-09 14:15] LABS: ALT 29 U/L (14-59); AST 21 U/L (15-37); Albumin 3.5 g/dL (3.4-5.0); Alkaline Phosphatase 81 U/L (46-116); Anion Gap 9.7 mmol/L (3-11); BUN 29 mg/dL (7-18); Bilirubin, Total 0.8 mg/dL (0.2-1.0); CO2 28.3 mmol/L (21.0-32.0); CREATININE 1.1 mg/dL (0.55-1.02); Calcium 10.3 mg/dL (8.5-10.1); Chloride 103 mmol/L (98-107); Estimated GFR 53.72 (mL/min/1.73m2); Glucose 161 mg/dL (74-106); Potassium 3.6 mmol/L (3.5-5.1); Sodium 141 mmol/L (136-145); Total Protein 7.6 g/dL (6.4-8.2)
--- NOTE | 2023-09-09 15:45 | DI.MRI_ITS ---
Exam(s) MR BRAIN WO/W EXAM: MR BRAIN WO/W CLINICAL HISTORY: vertigo,. TECHNIQUE: Multiplanar multisequence MRI of the brain was performed. CONTRAST MATERIAL: IV Contrast: 16 ML of Dotarem contrast administered. COMPARISON: CT CT HEAD WO from 09/09/2023 FINDINGS: Exam somewhat limited by patient motion. VENTRICLES AND EXTRA AXIAL SPACES: Normal in size and morphology for the patient's age. HEMORRHAGE: None. CEREBRAL PARENCHYMA: No focus of restricted diffusion to suggest acute infarct. No space-occupying le shayla identified. Arm prominent areas of high signal in the white matter consistent with sequela of m icrovascular disease. No abnormal signal in the left temporal lobe. Findings on CT are consistent w ith artifact. MIDLINE SHIFT: None. BRAINSTEM/CEREBELLUM: Normal. CALVARIUM: Normal. ENHANCEMENT: No suspicious enhancement identified. VISUALIZED PARANASAL SINUSES/MASTOIDS: Clear. Orbits: Unremarkable. Pituitary: Normal. Vasculature: Normal flow voids. IMPRESSION: Prominent white matter changes of small vessel disease. No evidence of abnormal signal within the le ft temporal lobe or abnormal enhancement DATA REPOSITORY:
[2023-09-09] MEDS: Normal Saline Flush 10 ML SYR IVP (16:14)
[2023-09-09] MEDS: Gadoterate meglumine 20 ML SYRINGE 16 ML IVP (16:15)
--- NOTE | 2023-09-09 17:01 | DI.VRAD_ITS ---
PROCEDURE INFORMATION: Exam: MR Head Without and With Contrast Exam date and time: 09/09/2023 4:11 PM Age: 72 years old Clinical indication: Dizziness TECHNIQUE: Imaging protocol: Magnetic resonance imaging of the head without and with contrast. Contrast material: DOTAREM; Contrast volume: 16 ml; Contrast route: IV; COMPARISON: CT HEAD WO 09/09/2023 2:07 PM FINDINGS: Brain: There is a faintly enhancing lesion in the mid mario with associated curvilinear enhancing vascular structure. Susceptibility weighted images demonstrate hypoattenuation in the region of the enhancing lesion which measures approximately 4 mm. 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 No acute intracranial hemorrhage. No midline shift. No extra-axial collections. Moderate periventricular and subcortical white matter FLAIR and T2 weighted hyperintensity, nonspecific but consistent with chronic microvascular ischemic disease. No restricted diffusion to suggest acute infarction. The visualized segments of the intracranial ICAs and vertebrobasilar arteries demonstrate flow voids consistent with patency without significant stenosis. Cerebral ventricles: The ventricles are normal in position and mildly enlarged. There is commensurate cortical sulcal prominence. The findings are consistent with age appropriate cerebral atrophy. No hydrocephalus. Bones/joints: No acute osseous findings. Paranasal sinuses: The visualized paranasal sinuses are well-aerated. There are no air fluid levels to suggest acute sinusitis. Mastoid air cells: The tympanomastoid air cells are normally aerated as visualized. Orbital cavities: The orbits are unremarkable as visualized. Soft tissues: The soft tissues are unremarkable. IMPRESSION: 1. Chronic microvascular ischemic change without acute infarction or acute intracranial hemorrhage. 2. 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 Dictated and Authenticated by: Leandra Ortiz MD. Ordering:CHRISTY Zambrano MD
== END 2023-09-09 17:23 | disposition home or self-care (01) ==
PROVIDERS: Emergency Provider Emergency Medicine Emergency Medical Services; PCP Family Medicine
DX: H81.10 Benign paroxysmal vertigo, unspecified ear (principal)
CPT/HCPCS: 36415; 70553; 80053; 96361; 96374; 99285; 70450; 85025; 99284; J2405